=== PATIENT | female | born 1945 | race Caucasian/White ===

== ENCOUNTER 2016-09-12 10:59 | Day surgery (SDC) | payer MEDICARE, OTHER ==
--- NOTE | ~2016-09-12 | EGD ---
EGD REPORT [facility] [address] [id number] NAME: SUZETTE DUFFY : [birth year] STATUS : REG [facility]#: [id number] AGE: 71 ADM/REG DATE : 09/12/16 MR#: [id number] REPORT SERV DATE: 09/12/16 DICTATED BY: TEOFILO GAN DATE: 09/12/16 REPORT STATUS : Draft [facility]: [facility] DATE: 09/12/16 Endoscopy Center Patient Name: Suzette Duffy Date of : 1945 Attending MD: TEOFILO GAN MD Procedure Date No Time: 09/12/2016 Procedure: Upper GI endoscopy Indications: Abdominal pain in the right upper quadrant, Odynophagia, Heartburn, Suspected esophageal reflux, Unexplained chest pain Referring MD: GILMER WAN MD Medicines: as per anesthesia Complications: No immediate complications. Procedure: Pre-Anesthesia Assessment: - ASA Grade Assessment: III - A patient with severe systemic disease. After obtaining informed consent, the endoscope was passed under direct vision. Throughout the procedure, the patient's blood pressure, pulse, and oxygen saturations were monitored continuously. The GIF [id number] was introduced through the mouth, and advanced to the third part of duodenum. The upper GI endoscopy was accomplished without difficulty. The patient tolerated the procedure. Findings: The examined esophagus was normal. Localized mild inflammation characterized by erythema was found in the gastric antrum. Biopsies were taken with a cold forceps for histology. The cardia and gastric fundus were normal on retroflexion. The examined duodenum was normal. Impression: - Normal esophagus. - Gastritis. Biopsied. - Normal examined duodenum. Recommendation: - Await pathology results. Procedure Code(s): --- Professional --- 56412, Esophagogastroduodenoscopy, flexible, transoral; with biopsy, single or multiple Diagnosis Code(s): --- Professional --- K29.70, Gastritis, unspecified, without bleeding R10.11, Right upper quadrant pain EGD REPORT [facility] [address] [id number] NAME: SUZETTE DUFFY : [birth year] STATUS : REG [facility] PAT#: [id number] AGE: 71 ADM/REG DATE : 09/12/16 MR#: [id number] REPORT SERV DATE: 09/12/16 DICTATED BY: TEOFILO GAN. DATE: 09/12/16 REPORT STATUS : Draft [facility] DATE: 09/12/16 R13.10, Dysphagia, unspecified R12, Heartburn R07.9, Chest pain, unspecified CPT copyright 2013 [employer] [place] [employer]. All rights reserved. The codes documented in this report are preliminary and upon senior associate review may be revised to meet current compliance requirements. TEOFILO GAN MD 09/12/2016 2:11 PM This report has been signed electronically. Number of Addenda: 0 Note Initiated On: 09/12/2016 1:38 PM Scope Withdrawal Time 0 hours 0 minutes 0 seconds [id number] [id number]
[~2016-09-12 10:59] MED LIST: ACET500CAP PO; ARMOUR THYRO30 MG PO; BOSWELLIA PO; CALTRA600D PO; CLARIT10 PO; CURCUMIN PO; CYANO1000T PO; ESTRACE1 MG PO; FIBER GUMMIES; GLUCCHONDR PO; MULTIPLE VIT PO; NEXIUM20 M1 PO; PROBIOTIC PO; PROMETRIUM PO; TUMSROLL PO
== END 2016-09-12 23:59 | disposition home or self-care (01) ==
LOC: DMU 10:59
PROVIDERS: Internal Medicine Gastroenterology
PROC: 0DB68ZX Excision of Stomach, Via Natural or Artificial Opening Endoscopic, Diagnostic (ICD-10-PCS; principal; 2016-09-12 12:00)
DX: K29.50 Unspecified chronic gastritis without bleeding (principal); K21.9 Gastro-esophageal reflux disease without esophagitis; R13.10 Dysphagia, unspecified; R12 Heartburn; Z90.49 Acquired absence of other specified parts of digestive tract; Z88.0 Allergy status to penicillin; Z88.2 Allergy status to sulfonamides; Z91.040 Latex allergy status; Z98.890 Other specified postprocedural states
CPT/HCPCS: 88305; 88342